=== PATIENT | female | born 1985 | race Caucasian/White ===

== ENCOUNTER 2025-10-02 09:07 | Emergency (ER) | payer BC, SELFPAY ==
--- NOTE | ~2025-10-02 | XR_ITS ---
Examination: XR chest 2V Clinical History: chest pain Comparison: None Technique: PA and Lateral Findings: Cardiomediastinal silhouette normal size and configuration. Lungs clear. No acute bony abnormality. IMPRESSION: 1. No acute cardiopulmonary findings. Reviewed, dictated and finalized at location [facility] [employer]
--- NOTE | 2025-10-02 09:08 | ECG_ITS ---
Test Date: 2025-10-02 09:12:56 Measurements Intervals [place] Rate: 82 P: 70 [place]: 147 QRS: -9 QRSD: 81 T: 19 QT: 348 QTc: 407 Interpretive Statements SINUS RHYTHM NONSPECIFIC T-WAVE ABNORMALITY- INFERIOR LEADS BASELINE ARTIFACT- I, II, III, AVR, AVL, AVF BORDERLINE ECG No previous ECG available for comparison Electronically Signed On 10-02-2025 17:11:38 SPORTS CARTOONIST by Alan Dennis D.O.
[2025-10-02 09:13] VITALS: BP 134/83; PULSE 56; RESP 16; TEMP 36.5; O2SAT 97
[2025-10-02 09:43] LABS: Hematocrit 40.7 % (37.0-47.0); Hemoglobin 13.5 g/dL (12.0-15.0); Immature Granulocyte Percent A 0.3 % (0-0.5); Lymphocytes Absolute Auto 1.48 K/mm3 (0.9-3.2); Mean Corpuscular HGB Conc 33.2 g/dl (32-36); Mean Corpuscular Hemoglobin 30.5 pg (26-34); Mean Corpuscular Volume 91.9 fl (80-100); Nucleated Red Blood Cells Absolute Auto 0.000 K/mm3 (0.0-0.012); Nucleated Red Blood Cells Perc 0.0 % (0.0-0.2); Platelet Count Result 352 k/mm3 (150-375); Red Blood Count 4.43 M/mm3 (4.2-5.4); White Blood Count 4.0 K/mm3 (4.5-10.0)
[2025-10-02 09:46] LABS: Alanine Aminotransferase 16 U/L (6-35); Albumin Level 4.5 g/dL (3.5-5.1); Alkaline Phosphatase 63 U/L (38-126); Anion Gap 6 mmol/L (4-12); Aspartate Amino Transferase 27 U/L (14-36); Bilirubin,Total 1.1 mg/dL (0.2-1.3); Blood Urea Nitrogen 12 mg/dL (7-17); Calcium 9.2 mg/dL (8.4-10.2); Carbon Dioxide 27 mmol/L (22-30); Chloride 105 mmol/L (98-107); Estimated CRCL calculation 84 ml/min; Estimated Glomerular Filt Rate > 60; Glucose 105 mg/dL (65-110); INR 1.0; Lipase 72 U/L (23-300); Potassium 4.2 mmol/L (3.4-5.0); Prothrombin Time 13.0 Seconds (11.1-14.7); Sodium 138 mmol/L (137-145); Total Protein 8.0 g/dL (6.3-8.2)
[2025-10-02 09:47] LABS: Partial Thromboplastin Time 36.2 Seconds (22.3-36.8)
[2025-10-02 09:57] LABS: Troponin I < 0.012 ng/mL (0.000-0.034)
[2025-10-02 12:03] VITALS: BP 134/76; PULSE 77; RESP 20; O2SAT 100
--- NOTE | 2025-10-02 12:30 | ED_ITS ---
HPI - Chest Pain General Chief Complaint: Chest Pain Stated Complaint: chest pain Time Seen by Provider: 10/02/25 12:21 Source: patient Mode of arrival: ambulatory Limitations: no limitations History of Present Illness HPI narrative: This is a 40-year-old female with history of anxiety who presents to the ED for chest pain. Patient states for the past week, she did having a left-sided chest dullness. She has not had any shortness of breath or cough. She states that she has been exposed to her who had flu-like symptoms last week. She denies any symptoms like that at this time. Denies fevers, chills, nausea, vomiting. Patient does have family history of coronary artery disease which is not been diagnosed with anything that she is aware of Related Data Allergies Allergy/AdvReac Type Severity Reaction Status Date / Time Penicillins AdvReac Intermediate Vomiting Verified 10/02/25 09:11 Review of Systems 2 Review of Systems: All systems reviewed & are unremarkable except as noted in HPI and below Exam 2 Narrative: APPEARANCE: No acute distress, nontoxic, resting in bed EYES: EOMI HEENT: Normocephalic, atraumatic, OMM RESPIRATORY: No respiratory distress Clear to auscultation bilaterally with no rhonchi wheezing or rales. CARDIOVASCULAR: Regular rate and rhythm without murmurs rubs or gallops. ABDOMINAL: Soft, nontender, nondistended, no rebound or guarding MUSCULOSKELETAl: Moves all extremities. No clubbing, cyanosis or edema. NEURO: Awake and alert. Following commands, speech normal, no focal deficits SKIN:: Warm, dry. No rashes lesions or abrasions PSYCHIATRIC: Normal affect/mood, Course Vital Signs Vital signs: Vital Signs Temperature 97.7 F 10/02/25 09:13 Pulse Rate 56 L 10/02/25 09:13 Respiratory Rate 16 10/02/25 09:13 Blood Pressure 134/83 10/02/25 09:13 Pulse Oximetry 97 10/02/25 09:13 Oxygen Delivery Room Air 10/02/25 09:13 Temperature 97.7 F 10/02/25 09:13 Pulse Rate 80 10/02/25 12:46 Respiratory Rate 20 10/02/25 12:46 Blood Pressure 142/89 H 10/02/25 12:46 Pulse Oximetry 100 10/02/25 12:46 Oxygen Delivery Room Air 10/02/25 09:13 [facility] MDM Narrative Medical decision making narrative: 4-year-old female Presenting for chest pain. On initial evaluation patient was in no acute distress afebrile, hemodynamic stable. Differentials include but are not limited to: ACS, PE, PNA, bronchitis, costochondritis, pleurisy, viral syndrome, GERD Notable exam findings: Heart and lungs clear I personally reviewed the patient's lab result. Notable lab findings: CBC and CMP without significant abnormalities. Troponin negative. Lipase negative. I personally reviewed the patient's images and interpret as follows: Chest x- ray: Normal cardiac silhouette, no consolidations, no pleural effusions, no pulmonary vascular congestion I personally reviewed the patient's EKGs: Normal sinus rhythm, normal axis, normal intervals, no acute ST or T-wave changes Patient's EKGs and labs are without significant high risk changes. Cardiac risk factors reviewed. Patient is felt likely low risk for ACS and reasonable for further risk stratification testing as an outpatient. Pain was not sudden or maximal in onset without tearing or ripping quality. No other signs of symptoms suggest aortic dissection. A low-risk Wells criteria is noted, PE is felt to be unlikely. No pneumonia seen on evaluation today. Patient is felt to be a reasonable candidate for continued evaluation as an outpatient. Patient was deemed appropriate for discharge at this time. Patient was advised follow-up with their PCP in the next week for re-evaluation. Patient was agreeable to this plan. Given strict return precautions. Differential Diagnosis Differential Diagnosis: ACS, PE, PNA, bronchitis, costochondritis, pleurisy, viral syndrome, GERD Lab Data 10/02/25 09:29 10/02/25 09:29 Labs: Lab Results 10/02/25 10/02/25 Range/Units 09:29 12:18 WBC 4.0 L (4.5-10.0) K/mm3 RBC 4.43 (4.2-5.4) M/mm3 Hgb 13.5 (12.0-15.0) g/dL Hct 40.7 (37.0-47.0) % MCV 91.9 (80-100) fl MCH 30.5 (26-34) pg MCHC 33.2 (32-36) g/dl RDW 12.5 (11.5-14.5) % Plt Count 352 (150-375) k/mm3 MPV 9.1 (7.4-10.4) fl Immature Gran % (Auto) 0.3 (0-0.5) % Neut % (Auto) 49.5 (45.5-73.1) % Lymph % (Auto) 37.3 (18.3-44.2) % Lane % (Auto) 8.1 (2.6-8.5) % Eos % (Auto) 3.3 (0-4.4) % Baso % (Auto) 1.5 H (0.2-1.2) % Lymph # (Auto) 1.48 (0.9-3.2) K/mm3 Lane # (Auto) 0.3 (0.1-0.6) K/mm3 Eos # (Auto) 0.1 (0-0.3) K/mm3 Baso # (Auto) 0.1 (0.0-0.1) K/mm3 Abs Immat Gran (auto) 0.01 (0.00-0.031) K/mm3 Absolute Neuts (auto) 2.0 (1.3-6.7) K/mm3 Absolute Nucleated RBC 0.000 (0.0-0.012) K/mm3 Nucleated RBC % 0.0 (0.0-0.2) % PT 13.0 (11.1-14.7) Seconds INR 1.0 APTT 36.2 (22.3-36.8) Seconds Sodium 138 (137-145) mmol/L Potassium 4.2 (3.4-5.0) mmol/L Chloride 105 (98-107) mmol/L Carbon Dioxide 27 (22-30) mmol/L Anion Gap 6 (4-12) mmol/L BUN 12 (7-17) mg/dL Creatinine 0.81 (0.7-1.0) mg/dL Estim Creat Clear Calc 84 ml/min Estimated GFR > 60 (59 - ) Glucose 105 (65-110) mg/dL Calcium 9.2 (8.4-10.2) mg/dL Total Bilirubin 1.1 (0.2-1.3) mg/dL AST 27 (14-36) U/L ALT 16 (6-35) U/L Alkaline Phosphatase 63 (38-126) U/L Troponin I < 0.012 < 0.012 (0.000-0.034) ng/mL Total Protein 8.0 (6.3-8.2) g/dL Albumin 4.5 (3.5-5.1) g/dL Lipase 72 (23-300) U/L Imaging Data Radiologist's impression: ITS Impressions Chest X-Ray 10/02/25 09:48 IMPRESSION: 1. No acute cardiopulmonary findings. Discharge Plan Discharge Clinical Impression: Chest pain Qualifiers: Chest pain type: unspecified Qualified Code(s): R07.9 - Chest pain, unspecified Patient Disposition: Home Condition: Stable Instructions: Antibiotic Form, Chest Pain (ED) Additional Instructions: Labs, EKG, chest x-ray were all reassuring and not indicative of heart damage at this time. It is unclear with sore severe pain is at this time but it may be due to a costochondritis or pleurisy. You may take Tylenol and ibuprofen for the pain. Follow-up with your PCP in the next week for re-evaluation. Return to the ED for any new worsening symptoms. Patient Language: Chilean Follow-up/Referrals: PHYSICIAN,FINANCIAL PROJECT MANAGER [Non-Staff, Internal Medicine] Miguel Trevino MD [Physician, Family Practice]
--- OUTSIDE RECORDS SUMMARY | 2025-10-02 12:44 | XMS_ITS | Encounter Summary ---
Author Organization [facility] Address [facility] [place] [address] Care Team Providers Care Strawhat Sizer Name Role Phone Claire Cadena OIL PROCESSING TECHNICIAN Primary Care Provider [phone] Encounter Details Date Type Department Care Team (Late st Contact Info) Description 09/08/2023 [facility] Message Enc [facility] Medical Group Family Medicine [facility] [address] [place] [id number] CV Ingenuitymarian, [facility] Provider Referral Social History Tobacco Use Types Packs/Day Years Used Date Smoking Tobacco: Former Cigarettes 0.3 4 0 12/16/2012 - 12/16/2016 Passive Smoke Exposure: Never Smokeless Tobacco: Never Alcohol Use Standard Drinks/Week Comments Not Currently 0 (1 standard drink = 0.6 oz pur e alcohol) PHQ-2 Answer Date Recorded Patient Health Questionnaire-2 Score 2 06/26/2023 Comments No Sex and Gender Information Value Date Recorded Sex Assigned at Not on file Legal Sex Female 1:20 PM CDT Gender Identity Female 12/30/2022 10:25 AM CDT Sexual Orientation Straight 12/30/2022 10 :25 AM CDT documented as of this encounter Plan of Treatment Not on file documented as of this encounter Visit Diagnoses Not on filedocumented in this encounter Additional Health Concerns Assessment Noted Time PHQ-9 Depression Total Score: 7 06/26/20 23 11:03 AM CDT documented as of this encounter Care Teams Strawhat Sizer Relationship Specialty Start Date End Date Claire Cadena, OIL PROCESSING TECHNICIAN [address] [place] [address] PCP - General NURSE PRACTITIONER 12/30/22 08/16/25 documented as of this encounter
--- OUTSIDE RECORDS SUMMARY | 2025-10-02 12:44 | XMS_ITS | Encounter Summary ---
Author Organization [facility] Address [address] [place] [address] Care Team Providers Care Outboard Motor Tester Name Role Phone Catia Veras MD Primary Care [facility] ider Reason for Visit * Reason Onset Date Comments Courtesy Call 03/07/2020 Encounter Details Date Type Department Care Team (Late st Contact Info) Description 03/07/2020 Telephone [facility] [email or web address] [facility] [place] [address] Duarte Ortiz (), RT Courtesy Call Social History Tobacco Use Types Packs/Day Years Used Date Smoking Tobacco: Former Cigarettes 0.3 5 Smokeless Tobacco: Never Alcohol Use Standard Drinks/Week Comments Yes 0 (1 standard drink = 0.6 oz pur e alcohol) socially Comments No Sex and Gender Information Value Date Recorded Sex Assigned at Not on file Legal Sex Female 6:07 AM POLYETHYLENE COMBINER Gender Identity Not on file Sexual Orientation Not on file 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 No / Unsure 03/04/2020 10:44 AM CDT documented as of this encounter Plan of Treatment Not on file documented as of this encounter Visit Diagnoses Not on filedocumented in this encounter Care Teams Outboard Motor Tester Relationship Specialty Start Date End Date Catia Veras MD PCP - General Family Practice 06/25/19 documented as of this encounter
--- OUTSIDE RECORDS SUMMARY | 2025-10-02 12:44 | XMS_ITS | Clinical Summary ---
Author Organization [facility] Address [facility] [place] [address] Care Team Providers Care Stock Grader Name Role Phone Unavailable Primary Care Provider Unavailabl e Allergies Active Allergy Reactions Criticality Noted Date Comments Penicillins Nausea and Vomiting Low 08/12/2014 Medications Multiple Vitamin (MULTIVITAMIN ADULT OR) Take by mouth daily. Active propranolol (INDERAL) 10 MG tabletIndication s:Generalized anxiety disorder TAKE 1 TABLET BY MOUTH DAILY NEEDED FOR ANXIETY. 30 tablet 05/12/2024 Active Active Problems Problem Noted Date Diagnosed Date Overweight (BMI 25.0-29.9) 04/20/2024 Assessment & Plan (04/20/2024 1:15 PM CDT): Diet and lifestyle discussed. Pure hypercholesterolemia 04/20/2024 Assessment & Plan (04/20/2024 1:16 PM CDT): Will recheck lipid panel Generalized anxiety disorder 12/23/2016 Overview (04/20/2024): Currently taking fluvoxamine. Other medications patient has tried for her generalized anxiety would include Lexapro, Prozac, Zoloft, Effexor, Duloxetine, and Celexa (just for a month). Has not been on a beta-marcell, hydroxyzine or benzo before. Pt does not tolerate benadryl, Zyzal, or Zyrtec. Makes her too tired. Tried supplements such as Ashwagandha and L-theanine in the past as well. Denies any depression. Denies SI/HI. Has been to [facility] in the past. Does yoga to help with her anxiety. Assessment & Plan (04/20/2024 1:08 PM CDT): Went over with pt how to wean down off of Fluvoxamine. Discussed options for as needed use for anxiety. We agreed on propanolol. Discussed how to take and side effects. Seasonal allergic rhinitis due to pollen 017 Resolved Problems Problem Noted Date Diagnosed Date Resolved Date Anxiousness 12/31/2022 04/20/2024 Leg pain 12/11/2020 04/20/2024 Overweight 11/01/2019 04/20/2024 Primary insomnia 01/20/2017 04/20/2024 Pain of right scapula 12/23/20162023 Immunizations Immunization Administration Dates Next Due Fluzone 6 Months+ Quad (0.5 mL Prefilled Syringe) 09/03/2023 HPV4 (Gardasil) 08/03/2009,04/07/2009,02/09/2009 Influenza (Generic) 12/01/2018 Influenza Adult (Generic) 10/09/2022 MODERNA COVID-19 BIVALENT (1 2+), MRNA, LNP-S, PF 08/08/2022 PFIZER COVID-19 (ORIGINAL FO RMULATION, PURPLE CAP) mRNA, LNP-S, PF, 30 MCG/0.3 ML DOSE 01/21/2021,12/31/2020 Tdap (Adacel) 12/31/2022 Family History Medical History Relation Comments Heart Disease Father Hypertension Father Mental Health Father Mental Health Mother Mother is deceas ed Relation Status Comments Father Alive Mother Social History Tobacco Use Types Packs/Day Years Used Date Smoking Tobacco: Former Cigarettes 0.3 4 0 12/16/2012 - 12/16/2016 Passive Smoke Exposure: Never Smokeless Tobacco: Never Tobacco Cessation:Counseling Given: No Alcohol Use Standard Drinks/Week Comments Not Currently 0 (1 standard drink = 0.6 oz pur e alcohol) PHQ-2 Answer Date Recorded Patient Health Questionnaire-2 Score 0 05/06/2024 Comments No Sex and Gender Information Value Date Recorded Sex Assigned at Not on file Legal Sex Female 1:20 PM CDT Gender Identity Female 12/30/2022 10:25 AM CDT Sexual Orientation Straight 12/30/2022 10 :25 AM CDT Last Filed Vital Signs Vital Sign Reading Time Taken Comments Blood Pressure 98/70 05/06/2024 1:05 PM CDT Pulse 79 05/06/2024 1:05 PM CDT Temperature 36.7 C (98 F) 05/06/2024 1:05 PM CDT Respiratory Rate 20 05/06/2024 1:05 PM CDT Oxygen Saturation 99% 05/06/2024 1:05 PM CDT Inhaled Oxygen Concentration - - Weight 80.3 kg (177 lb) 05/06/2024 1:05 PM CDT Height 165.1 cm (5' 5) 05/06/2024 1:05 PM CDT Body Mass Index 29.45 05/06/2024 1:05 PM CDT Plan of Treatment Health Maintenance Due Date Last Done Comments Hepatitis B Vaccines (1 of 3 - 19+ 3-dose series) 2004 PHQ-2 (Physician [place]) 10/13/2024 05/06/2024 Annual Physical 05/06/2025 05/06/2024, 07/0 06/2024, 12/31/2022 COVID-19 Vaccine ( season) 2025 09/27/2023, 08/08/2022, 09/07/2021, Additional history exists Mammogram Screening 2025 Influenza Adult (#1) 2025 09/03/2023, 10/09/2022, 12/01/2018 Cervical Cancer Screening Pap Smear (Age 30 to 64) Every 3 Years 05/06/2027 05/06/2024, 12/06/2019 Cervical Cancer Screening Pap with HPV Testing (Age 30 to 64) Every 5 Years 05/06/2029 05/06/2024 Cervical Cancer Screening with HPV 05/06/2029 DTaP, Tdap and Td Vaccines (2 - Td or Tdap) 12/31/2032 12/31/2022 HPV Vaccines Completed 08/03/2009, 03/14, 02/09/2009 Hepatitis C Completed 01/06/2023 Hepatitis A Vaccines Aged Out No long er eligible based on patient's age to complete this topic Meningococcal B Vaccine Aged Out No l onger eligible based on patient's age to complete this topic Meningococcal Vaccine Aged Out No murali sharlene eligible based on patient's age to complete this topic Pneumococcal Vaccine: Pediatrics (0 to 5 Years) and At-Risk Patients (6 to 49 Years) Aged Out No longer eligible based on patient's age to complete this topic RSV Immunizations Under 20 Months Aged Out No longer eligible based on patient's age to complete this topic Procedures Procedure Name Priority Date/Time Associated Diagnosis Comments HUMAN PAPILLOMAVIRUS, HIGH-RISK TYPES Routine 05/06/2024 12:00 PM CDT CYTOPATH CERV/VAG THIN LAYER Routine 05/06/2024 12:00 AM CDT HEPATITIS C ANTIBODY Routine 01/06/2023 9:50 AM CDT Need for hepatitis C screening test from Last 3 Months or Most Recently Relevant to Health Maintenance Results * HUMAN PAPILLOMAVIRUS, HIGH-RISK TYPES (05/06/2024 12:00 PM CDT) SPEC DESCRIPTION CERVIX 05/10/20 7:25 AM CDT [facility] HPV DNA HIGH RISK NEGATIVE NEGATIVE 05/11/2024 1:39 AM CDT [facility] Comment:SEE CYTOLOGY REPORT 05/06/2024 12:0 0 PM CDT us Claire Cadena NP PATHOLOGY/CYTOLOGY ORDERA BLES Final Result [facility] [address] [place] [address], * Cytopath Cerv/Vag Thin Layer (05/06/2024 12:00 AM CDT) THIN PREP PAP [facility] [address] [place] [address] Department of Pathology Pathology Report CERVICAL/VAGINAL PAP SMEAR REPORT Name: DEYSI FLOOD Age: 9 1985 (Age: 38) Location: [facility] Sex: F Collected Date: 05/06/2024 [facility] #: [id number] Date Received: 05/07/2024 Date Reported: 05/11/2024 Provider: CLAIRE CADENA INSURANCE CLAIMS SUPERVISOR INTERPRETATION ABNORMAL RESULT CERVICAL/ENDOCERVI LIZ: SATISFACTORY FOR EVALUATION. ENDOCERVICAL/TRANS FORMATION ZONE COMPONENT ABSENT. ATYPICAL SQUAMOUS CELLS OF UNDETERMINED SIGNIFICANCE. NEGATIVE FOR HIGH RISK HPV. The FDA approved Aptima HPV assay is an in vitro nucleic acid amplification test for the qualitative detection of E6/E7 viral messenger RNA (mRNA) from 14 high-risk types of human papillomavirus (HPV) in cervical specimens. The high-risk HPV types detected by the assay include: 16,18,31,33,35,39, 45,51,52,56,58,59, 66, and 68. Initial cytologic [place] [address]. This case was interpreted and signed out at [facility], [address] [place] [address]. Electronically Signed Out JAZ Tse MD (ASCP) CLINICAL HISTORY Z01.419 ENCOUNTER FOR GYNECOLOGICAL EXAMINATION Z11.51 SCREENING FOR HPV (HUMAN PAPILLOMAVIRUS) SCREENING PAP ThinPrep Pap Test with HR HPV testing requested. Date of Last Menstrual Period: 04/21/2024 Menstrual Status: Regular SPECIMEN SUBMITTED CERVICAL/ENDOCERVI LIZ Specimen Received:1 Thin Prep Vial, Image Assisted Pap (SMD) Please note: The Pap smear is not a diagnostic test. It is a screening test. Negative results on combined screening (Pap test and HPV-DNA) have a high negative predictive value (99.1-100 percent) for cervical cancer. The pap test is not effective in detecting cervical adenocarcinoma. [facility] () [facility] 05/06/2024 05/07/2024 1:0 9 PM CDT Comment:CERVICAL/ENDOCERVICA L Claire Cadena INSURANCE CLAIMS SUPERVISOR PATHOLOGY/CYTOLOGY ORDERA BLES Final Result [facility] [address] [place] [address], [place] [phone] * HEPATITIS C ANTIBODY (01/06/2023 9:50 AM CDT) HEPATITIS C AB NON-REACTI VE NON-REACT ELIZABETH 01/06/2023 6:14 PM CDT [facility] Comment: ANTIBODIES TO HCV NOT DETECTED. DOES NOT EXCLUDE THE POSSIBILITY OF EXPOSURE TO HCV. 01/06/2023 9:50 AM CDT Claire Cadena INSURANCE CLAIMS SUPERVISOR LABORATORY Final Res ult Performing Organization Address City/[facility]/ZIP Co de Phone Number [facility] [address] [place] [address], [place] [phone] from Last 3 Months or Most Recently Relevant to Health Maintenance Insurance
--- OUTSIDE RECORDS SUMMARY | 2025-10-02 12:44 | XMS_ITS | Encounter Summary ---
Author Organization [facility] Address [facility] [place] [address] Care Team Providers Care Mortgage Collector Name Role Phone Claire Cadena NP Primary Care Provider [phone] Encounter Details Date Type Department Care Team (Late st Contact Info) Description 12/28/2022 [facility] Message Enc [facility] Medical Group Family Medicine [facility] [address] [id number] Claire Cadena NP [address] [place] [phone] Medical Records Social History Tobacco Use Types Packs/Day Years Used Date Smoking Tobacco: Never Assessed PHQ-2 Answer Date Recorded Patient Health Questionnaire-2 Score 0 12/31/2022 Comments Unknown Sex and Gender Information Value Date Recorded Sex Assigned at Not on file Legal Sex Female 1:20 PM CDT Gender Identity Female 12/30/2022 10:25 AM CDT Sexual Orientation Straight 12/30/2022 10 :25 AM CDT COVID-19 Exposure Response Date Recorded In the last 10 days, have yo u been in contact with someone who was confirmed or suspected to have Coronavirus/COVID-19? No / Unsure 12/31/2022 1:57 PM CDT documented as of this encounter Progress Notes * Mynor Wall MA - 12/30/2022 8:39 AM CDT Records printed and will be scanned into pt. chart documented in this encounter Plan of Treatment Not on file documented as of this encounter Visit Diagnoses Not on filedocumented in this encounter Care Teams Mortgage Collector Relationship Specialty Start Date End Date Claire Cadena NP [address] [place] [address] PCP - General NURSE PRACTITIONER 12/30/22 08/16/25 documented as of this encounter
--- OUTSIDE RECORDS SUMMARY | 2025-10-02 12:44 | XMS_ITS | Clinical Summary ---
Author Organization [facility] [address] Address [address] [place] [id number] Care Team Providers Care Assistant Food Service Director Name Role Phone Nela Winslow NP Primary Care Provider [phone] Allergies Active Allergy Reactions Criticality Noted Date Comments Penicillins Nausea & Vomiting,Na usea And Vomiting,Stomach upset Low 08/12/2014 Medications multivit-min/demetrius jeremias fumarate (MULTI VITAMIN ORAL) Active loratadine (CLARITIN) 10 mg tabletIndication s:Allergic Rhinitis Take 1 tablet (10 mg total) by mouth daily Active propranoloL (INDERAL) 20 mg tabletIndication s:Generalized anxiety disorder Take 1 tablet (20 mg total) by mouth 3 (three) times a day as needed (for anxiety) 90 tablet 3 02/15/2025 Active citalopram (CeleXA) 10 mg tabletIndication s:Generalized anxiety disorder Take 1 tablet (10 mg total) by mouth daily 90 tablet 3 07/15/2025 Active Active Problems Problem Noted Date Diagnosed Date Encounter for well woman exa m with routine gynecological exam 07/15/2025 Assessment & Plan (07/15/2025 3:11 PM CDT): Pap smear with HPV cotesting completed. Order for mammogram. We will notify the patient of all results. Follow up in one year or sooner if needed. Patient verbalizes understanding regarding plan of care and all questions answered. Positive DARRYL (antinuclear antibody) 06/29/2024 Assessment & Plan (07/15/2025 3:11 PM CDT): Orders: DARRYL ab ql w/rflx to DARRYL qn; Future Assessment & Plan (06/29/2024 9:04 AM CDT): Positive speckled pattern DARRYL. Repeat DARRYL, anti double-stranded DNA with Sjogren's A and B. we will follow up with patient. Mixed hyperlipidemia 05/26/2024 Assessment & Plan (05/26/2024 6:09 PM CDT): Fasting lipid panel reviewed. Patient does not meet indications for medical treatment. We will continue to monitor her levels yearly.. Nonpharmacological interventions such as low carb diet, high in vegetables and fruit discussed. Educated on importance of physical activity. Patient verbalizes understanding regarding plan of care and all questions answered Attention deficit hyperactiv ity disorder (ADHD), predominantly inattentive type 05/26/2024 Assessment & Plan (03/15/2025 4:44 PM CDT): Doing fine without medication. Assessment & Plan (06/29/2024 8:46 AM CDT): Discussed with patient various medication options. We will try Vyvanse 20 mg daily. Advised she may continue using the hydroxyzine if needed. We discussed the goal would eventually be to be on medication that she does not need to take an anti anxiety medication with. Patient will message me on [facility] and let me know how she is doing on the medication. Assessment & Plan (05/26/2024 6:09 PM CDT): Will try patient on a low dose of Adderall 10 mg XR. Advised on side effects of medication. She will follow up with me in 4 weeks. She is advised that she can message me sooner in [employer] if she has any adverse reactions to the medication. I do believe after extensive history taking, assessing anxiety symptoms and ADHD self assessment that she does have ADHD and the anxiety is exacerbated from not treating her ADHD symptoms for so long. Generalized anxiety disorder 12/23/2016 Overview (02/15/2025): Currently taking fluvoxamine. Other medications patient has tried for her generalized anxiety would include Lexapro, Wellbutrin XL & IR, Zoloft, Effexor, Duloxetine, and Celexa (just for a month). Has not been on a beta-marcell, hydroxyzine or benzo before. Pt does not tolerate benadryl, Zyzal, or Zyrtec. Makes her too tired. Tried supplements such as Ashwagandha and L-theanine in the past as well. Denies any depression. Denies SI/HI. [facility] Does yoga to help with her anxiety. Assessment & Plan (07/15/2025 3:11 PM CDT): Orders: citalopram (CeleXA) 10 mg tablet; Take 1 tablet (10 mg total) by mouth daily Assessment & Plan (03/15/2025 4:46 PM CDT): Assessment & Plan (03/15/2025 4:46 PM CDT): Assessment & Plan (02/15/2025 4:14 PM CDT): Orders: citalopram (CeleXA) 10 mg tablet; Take 1 tablet (10 mg total) by mouth daily propranoloL (INDERAL) 20 mg tablet; Take 1 tablet (20 mg total) by mouth 3 (three) times a day as needed (for anxiety) Assessment & Plan (06/29/2024 9:05 AM CDT): Patient with concurrent anxiety and ADD. We will continue hydroxyzine 10 mg every 8 hours p.r.n. for anxiety as needed. We are switching patient to Vyvanse 20 mg from Adderall XR. Assessment & Plan (05/26/2024 6:08 PM CDT): Patient may have concurrent anxiety and HD HD. Patient is in agreement to try hydroxyzine 10 mg every 8 hours p.r.n. for anxiety symptoms. We will also treat ADHD. Seasonal allergic rhinitis due to pollen 017 Assessment & Plan (05/26/2024 6:09 PM CDT): Continue Claritin daily Resolved Problems Problem Noted Date Diagnosed Date Resolved Date Rash/skin eruption 06/29/2024 5 Assessment & Plan (06/29/2024 9:05 AM CDT): Triamcinolone 0.1 apply topically b.i.d. p.r.n.. BMI 29.0-29.9,adult 05/26/2024 03/15/20 25 Assessment & Plan (05/26/2024 3:19 PM CDT): Follow a heart healthy diet with regular physical activity. Encounters Date Type Department Care Team Description 07/18/2025 Results Follow-Up [facility] at [address] [phone] Nela Winslow NP CBC with auto differential, Comprehensive metabolic panel, Lipid panel, Additional followed-up results: 6 07/15/2025 3:38 PM CDT - 07/15/2025 11:59 PM [place] [address] Screening for cervical cancer Discharge Disposition: Discharge to home or self care 07/15/2025 3:10 [place] [address] Screening for iron deficiency anemia; Encounter for screening examination for impaired glucose regulation and diabetes mellitus; Screening, lipid; Fatigue, unspecified type; Screening for thyroid disorder; Positive DARRYL (antinuclear antibody); Need for hepatitis C screening test 07/15/2025 2:30 PM CDT Office Visit [facility] at [address] [phone] Nela Winslow NP BMI 28.0-28.9,adult (Primary Dx); Encounter for immunization; Screening for cervical cancer; Screening for iron deficiency anemia; Screening, lipid; Screening for thyroid disorder; Encounter for screening examination for impaired glucose regulation and diabetes mellitus; Fatigue, unspecified type; Positive DARRYL (antinuclear antibody); Encounter for well woman exam with routine gynecological exam; Need for hepatitis C screening test; Generalized anxiety disorder 07/08/2025 11:01 AM CDT - 07/08/2025 11:59 PM [place] [address] Screening mammogram, encounter for Discharge Disposition: Discharge to home or self care from Last 3 Months Immunizations Immunization Administration Dates Next Due HPV, Quadrivalent 08/03/2009,04/07/2009,02/10/20 09 Influenza, Quadrivalent, Spl it, Preservative Free, Intramuscular 09/03/2023,10/09/2022 Influenza, Trivalent, Preser vative Free, Intramuscular 07/15/2025 Influenza, Unspecified 12/01/2018 Pfizer SARS-CoV-2 Monovalent Vaccination (12+ Yrs) PURPLE 01/21/2021,12/31/2020 Tdap 12/31/2022 Medical History Medical History Date Comments Anxiety Hyperlipidemia History of chicken pox Kidney stone 2006 Family History Medical History Relation Name Comments Diabetes Father Jer Galvez Heart attack Father Jer Galvez Stroke Father Jer Galvez Relation Name Status Comments Father Jer Galvez Alive Mother Social History Tobacco Use Types Packs/Day Years Used Date Smoking Tobacco: Never Smokeless Tobacco: Never Tobacco Cessation:Counseling Given: Not Answered Alcohol Use Standard Drinks/Week Comments Never 0 (1 standard drink = 0.6 oz pur e alcohol) PHQ-2 Answer Date Recorded PHQ-2 Total Score (If total score is 3 or more points, staff should administer the PHQ-9) 0 07/15/2025 AUDIT-C Answer Date Recorded Q1: How often do you have a drink containing alcohol? Never 07/15/2025 Q2: How many drinks containi ng alcohol do you have on a typical day when you are drinking? Patient does not drink Q3: How often do you have si x or more drinks on one occasion? Never 07/15/2025 Comments No Sex and Gender Information Value Date Recorded Sex Assigned at Not on file Legal Sex Female 9:43 AM CDT Gender Identity Female 05/19/2024 8:40 AM CDT Sexual Orientation Straight 05/19/2024 8: 40 AM CDT Obstetrics History Para Term AB IAB SAB Ectopic Multiple Livin g Live Births 0 0 0 0 0 0 0 0 0 0 0 Last Filed Vital Signs Vital Sign Reading Time Taken Comments Blood Pressure 110/80 07/15/2025 2:24 PM CDT Pulse 84 07/15/2025 2:24 PM CDT Temperature 36.3 C (97.4 F) 07/15/2025 2:24 PM CDT Respiratory Rate 16 07/15/2025 2:24 PM CDT Oxygen Saturation 99% 07/15/2025 2:24 PM CDT Inhaled Oxygen Concentration - - Weight 78 kg (172 lb) 07/15/2025 2:24 PM CDT Height 165.1 cm (5' 5) 07/15/2025 2:24 PM CDT Body Mass Index 28.62 07/15/2025 2:24 PM CDT Plan of Treatment Health Maintenance Due Date Last Done Comments Breast Cancer Screening-Mammogram 07/08/2026 07/08/2025 Covid-19 Vaccine ( season) 2026 09/27/2023, 08/08/2022, 09/07/2021, Additional history exists Postponed from 06/13/2025 (Patient declined, but will receive in the future) Depression Screening 07/15/2026 07/15/2025, 02/15/2025, 05/26/2024 Regular Well Visit/Exam 18-64 07/15/2026 07/15/2025, 07/15/2025, 06/29/2024 Cervical Cancer Screening 07/15/20302024, 07/15/2025, 05/06/2024 DTaP/Tdap/Td Vaccine (2 - Td or Tdap) 12/31/2032 12/31/2022 HPV Vaccines Completed 08/03/2009, 03/14, 02/09/2009 Hepatitis C Screening Completed 07/15/2025 Influenza Vaccine Completed 07/15/2025, , 10/09/2022, Additional history exists Hepatitis B Screening Discontinued Pneumococcal vaccine <65 Aged Out No longer eligible based on patient's age to complete this topic Procedures Procedure Name Priority Date/Time Associated Diagnosis Comments HIGH RISK HPV DNA DETECTION WITH GENOTYPING Routine 07/15/2025 6:12 PM CDT Screening for cervical cancer EGFR Routine 07/15/2025 3:15 PM CDT Encounter for screening examination for impaired glucose regulation and diabetes mellitus DIFFERENTIAL AUTO Routine 07/15/2025 3:1 5 PM CDT Screening for iron deficiency anemia DARRYL QUALITATIVE WITH REFLEX TO DARRYL QUANTITATIVE Routine 07/15/2025 3:15 PM CDT Positive DARRYL (antinuclear antibody) THYROID FUNCTION CASCADE Routine 07/15/2025 3:15 PM CDT Screening for thyroid disorder VITAMIN D 25 HYDROXY Routine 07/15/2025 3:15 PM CDT Fatigue, unspecified type LIPID PANEL Routine 07/15/2025 3:15 PM CDT Screening, lipid COMPREHENSIVE METABOLIC PANEL Routine 07/15/2025 3:15 PM CDT Encounter for screening examination for impaired glucose regulation and diabetes mellitus CBC WITH AUTO DIFFERENTIAL Routine 07/15/2025 3:15 PM CDT Screening for iron deficiency anemia HEPATITIS C ANTIBODY Routine 07/15/2025 3:15 PM CDT Need for hepatitis C screening test PAP AND HIGH RISK HPV, REFLEX TO GENOTYPING Routine 07/15/2025 2:43 PM CDT Screening for cervical cancer SCREENING MAMMOGRAM BILATERAL W CLAUS Schedule Routine, Read Routine (OP Routine) 07/08/2025 11:22 AM CDT Screening mammogram, encounter for from Last 3 Months Results * High Risk HPV DNA Detection with Genotyping (Molecular component) (07/15/2025 6:12 PM CDT) HPV HR 16 Not Detected Not Detected [facility] Comment:Testing performed by : [facility], [address] [place] [address] HPV HR 18 Not Detected Not Detected [facility] Comment:Testing performed by : [facility], [address] [place]., [address] HPV HR Non 16/18 Not Detected Not Detected [facility] Comment: Interpretive Data Nucleic acid amplification for detection of high-risk Human Papilloma virus (HPV) is performed by the Alfredo Constantine 6800 HPV test. This assay specifically detects HPV-16 and HPV-18 genotypes. The following HPV genotypes are detected as high-risk HPV: HPV-31, 33, 35, ,39, 45, 51, 52, 56, 58, 59, 66, and 68. This assay has been approved by the [place] Food and Drug Administration for detection of HPV in cervical specimens collected by a physician using an endocervical brush/spatula or cervical broom and placed in the ThinPrep Pap Test PreservCyt collection containers. The performance characteristics of this test have been verified by the [facility] Molecular Infectious Disease laboratory. Correlate with separately reported cytology results, as applicable. Interpretive data last revised 23 Testing performed by: [facility], [address] [place]., [address] Endocervical 07/15/2025 6:12 PM CDT 07/15/2025 8:00 PM CDT Narrative [facility] - 07/18/2025 7:12 PM CDT Clinical history and diagnosis->cervical cancer screening Testing type->Screening Last menstrual period (date if known)->18 Menstrual status->Regular Previous positive HPV history?->Yes Previous atypical cytology->None Previous atypical cytology->ASCUS us Nela Winslow NP LAB BODY FLUIDS AND STOOLS ORDERABLES Final Result [facility] [address] [facility] Department [place] [address] [facility] * DARRYL ab ql w/rflx to DARRYL qn (07/15/2025 3:15 PM CDT) DARRYL Negative Comment: Interpretive Data Normal range for DARRYL Qualitative Antibody = Negative. 1. DARRYL is performed using indirect immunofluorescence against HEp-2 cells 2. DARRYL titers are performed on all positive qualitative results. 3. A significantly positive DARRYL result is defined as a positive nuclear fluorescence at a titer of 1:80 or greater. 4. 15% of normal people above age 65 have significantly positive DARRYL results. 5% or less of normal people age 65 or under have significantly positive DARRYL results. Current interpretive data was last revised on 2020. Testing performed by: [facility], [address] [place]., [address] Blood 07/15/2025 3:15 PM CDT 07/15/2025 9:12 PM CDT Nela Winslow NP LAB BLOOD ORDERABLES Final Result [facility] [address] [facility] Department [place] [address] * eGFR (07/15/2025 3:15 PM CDT) eGFR 90 >=60 mL/min/1. 73 m2 Comment: Interpretive Data Reference Interval Normal >/= 90 mL/min/1.73m2 Mildly decreased* 60 - 89 mL/min/1.73m2 Mildly to moderately decreased 45 - 59 mL/min/1.73m2 Moderately to severely decreased 30 - 44 mL/min/1.73m2 Severely decreased 15 - 29 mL/min/1.73m2 Kidney Failure < 15 mL/min/1.73m2 *Relative to young adult level Estimated glomerular filtration rate is determined by the 2020 CKD-EPI equation recommended by the National Kidney Foundation (A Unifying Approach to GFR Estimation: Recommendations of the NKF-ASK Task Force on Reassessing the Inclusion of Race in Diagnosing Kidney Disease, JASN 2020). The CKD-EPI equation should not be used for patients with unstable renal function and has not been validated in children and those over 70. Current interpretive data was last reviewed 2021. Blood 07/15/2025 3:15 PM CDT 07/15/2025 6:12 PM CDT us Nela Winslow DEPUTY SHERIFF BUILDING GUARD LAB BLOOD ORDERABLES Final Result [facility] [address] [facility] Department [place] [address] * Differential, auto (07/15/2025 3:15 PM CDT) Neutrophil abs 4.22 1.50 - 6.50 K/cumm Imm gran abs 0.02 0.00 - 0.10 K/cumm [facility] Lymphocyte abs 2.10 0.80 - 3.30 K/cumm [facility] Monocyte abs 0.76 0.20 - 0.80 K/cumm [facility] Eosinophil abs 0.20 0.00 - 0.50 K/cumm [facility] Basophil abs 0.08 0.00 - 0.10 K/cumm [facility] Neutrophil pct 57.1 % [facility] Comment: Interpretive Data Percent cell count reference ranges are not reported, since discordance with absolute values may lead to misinterpretation of CBC data. Current Interpretive Data was last revised on 2018. Imm gran pct 0.3 % [facility] Comment: Interpretive Data Percent cell count reference ranges are not reported, since discordance with absolute values may lead to misinterpretation of CBC data. Current Interpretive Data was last revised on 2018. Lymphocyte pct 28.5 % [facility] Comment: Interpretive Data Percent cell count reference ranges are not reported, since discordance with absolute values may lead to misinterpretation of CBC data. Current Interpretive Data was last revised on 2018. Monocyte pct 10.3 % [facility] Comment: Interpretive Data Percent cell count reference ranges are not reported, since discordance with absolute values may lead to misinterpretation of CBC data. Current Interpretive Data was last revised on 2018. Eosinophil pct 2.7 % [facility] Comment: Interpretive Data Percent cell count reference ranges are not reported, since discordance with absolute values may lead to misinterpretation of CBC data. Current Interpretive Data was last revised on 2018. Basophil pct 1.1 % [facility] Comment: Interpretive Data Percent cell count reference ranges are not reported, since discordance with absolute values may lead to misinterpretation of CBC data. Current Interpretive Data was last revised on 2018. Blood 07/15/2025 3:15 PM CDT 07/15/2025 6:12 PM CDT Nela Winlsow DEPUTY [employer]ER[employer] BUILDING [employer]ARD LAB BLOOD ORDERABLES Final Result Performing Organization Address City/[facility] Co de Phone Number [address] [place] [employer] [place] [address] * Thyroid Function [place] (07/15/2025 3:15 PM CDT) Pathologist [facility] TSH 1.05 0.30 - 4.20 mcIUnit/mL Blood 07/15/2025 3:15 PM CDT 07/15/2025 6:12 PM CDT Nela Winslow DEPUTY [employer]ER[employer] BUILD[employer] GUARD LAB BLOOD ORDERABLES Final Result Performing Organization Address [facility] de Phone Number [address] [address] * CBC with auto differential (07/15/2025 3:15 PM CDT) Pathologist [facility] WBC 7.38 3.80 - 9.90 K/cumm Hgb 13.0 11.9 - 15.5 g/dL [facility] Hct 39.3 35.6 - 45.5 % [facility] Plt 331 150 - 400 K/cumm [facility] MPV 9.8 9.1 - 12.3 fL [facility] RBC 4.24 3.90 - 5.20 M/cumm [facility] MCV 92.7 81.3 - 96.4 fL [facility] MCH 30.7 27.1 - 33.3 pg [facility] MCHC 33.1 32.3 - 35.7 g/dL [facility] RDW CV 12.8 11.1 - 14.9 % [facility] RDW SD 43.5 35.7 - 48.1 fL [facility] NRBC abs 0.00 0.00 - 0.01 K/cumm [facility] Blood 07/15/2025 3:15 PM CDT 07/15/2025 6:12 PM CDT Nela Winslow DEPUTY [employer]ER[employer] BUILD[employer]ARD LAB BLOOD ORDERABLES Final Result Performing Organization Address City/[facility]/ZIP Co de Phone Number [address] [address] * Hepatitis C antibody Blood (07/15/2025 3:15 PM CDT) Pathologist [facility] Hep C Ab Nonreactive Nonreactive Comment: Antibodies to HCV not detected. Does NOT exclude the possibility of recent exposure to HCV. Current interpretive data was last revised on 22 Interpretive Data Nonreactive: Antibodies to HCV not detected. Does NOT exclude the possibility of recent exposure to HCV. Equivocal: Equivocal for HCV antibodies. Supplemental molecular testing will be automatically performed to determine infection status in accordance with current CDC screening recommendations. Reactive: Positive for HCV antibodies. This may represent current or past HCV infection. Supplemental molecular testing will be automatically performed to determine current infection status in accordance with current CDC screening recommendations. Interpretive data was last revised on 2019. Blood 07/15/2025 3:15 PM CDT 07/15/2025 6:12 PM CDT Nela Winslow NP LAB MICROBIOLOGY - GENERAL ORDERABLES Final Result Performing Organization Address [facility] Co de Phone Number [address] [address] * Vitamin D 25 hydroxy (07/15/2025 3:15 PM CDT) Pathologist [facility] Vitamin D 25-OH 39.0 30.0 - 80.0 ng/mL Blood 07/15/2025 3:15 PM CDT 07/15/2025 6:12 PM CDT Nela Winslow DEPUTY [employer]ILD[employer] LAB BLOOD ORDERABLES Final Result Performing Organization Address City/[facility] Co de Phone Number [address] Department [place] [address] * Lipid panel (07/15/2025 3:15 PM CDT) Cholesterol 179 30 - 199 mg/dL Comment: Interpretive Data Ages < or = 19 years Acceptable: <170 mg/dL Borderline high: 170-199 mg/dL High: >or= 200 mg/dL Ages > or = 20 years Desirable: <200 mg/dL Borderline high: 200-239 mg/dL High: >or= 240 mg/dL Literature References: 1. Expert Panel on Integrated Guidelines for Cardiovascular Health and Risk Reduction in Children and Adolescents. Pediatrics 2011;128:S213 2. NCEP Expert Panel. Circulation 2004;110:227 Current Interpretive Data was last revised on 2018. Triglycerides 102 <=149 mg/dL [facility] Comment: Interpretive Data Ages < or = 9 years Acceptable: <75 mg/dL Borderline high: 75-99 mg/dL High: >or= 100 mg/dL Ages 10 to 20 years Acceptable: <90 mg/dL Borderline high: 90-129 mg/dL High: >or= 130 mg/dL Ages > or = 20 years Desirable: <150 mg/dL Borderline high: 150-199 mg/dL High: 200-499 mg/dL Very high: >or= 499 mg/dL Literature References: 1. Expert Panel on Integrated Guidelines for Cardiovascular Health and Risk Reduction in Children and Adolescents. Pediatrics 2011;128:S213 2. NCEP Expert Panel. Circulation 2004;110:227 Current Interpretive Data was last revised on 2018. HDL 49 >=40 mg/dL [facility] Comment: Interpretive Data Ages < or = 19 years Acceptable: >45 mg/dL Borderline low: 40-45 mg/dL Low: <40 mg/dL Ages > or = 20 years Desirable: >or= 60 mg/dL Low: <40 mg/dL Literature References: 1. Expert Panel on Integrated Guidelines for Cardiovascular Health and Risk Reduction in Children and Adolescents. Pediatrics 2011;128:S213 2. NCEP Expert Panel. Circulation 2004;110:227 Current Interpretive Data was last revised on 2018. LDL, calculated 111 <=129 mg/dL [facility] Comment: Interpretive Data Ages < or = 19 years Acceptable: <110 mg/dL Borderline high: 110-129 mg/dL High: >or= 130 mg/dL Ages > or = 20 years Optimal: <100 mg/dL Near optimal: 100-129 mg/dL Borderline high: 130-159 mg/dL High: >160 mg/dL Calculated using the Glynn LDL-C estimating equation. This equation was implemented on 2024. Prior to this date LDL-C was estimated using the Friedewald equation. Literature References: 1. Expert Panel on Integrated Guidelines for Cardiovascular Health and Risk Reduction in Children and Adolescents. Pediatrics 2011;128:S213 2. NCEP Expert Panel. Circulation 2004;110:227 3. Glynn M et al. CHRISTAL Cardiol. 2020 February 10;5(5):540-548. doi: 10.1001/[email or web address] Current Interpretive Data was last revised on 2024. Non-HDL Cholesterol 130 mg/dL [facility] Comment: Interpretive Data Ages < or = 19 years Acceptable: <120 mg/dL Borderline high: 120-144 mg/dL High: >145 mg/dL Ages > or = 20 years When triglycerides are >200 mg/dL, Non-HDL cholesterol is a secondary target of therapy with treatment goals that are 30 mg/dL greater than the LDL cholesterol target. Literature References: 1. Expert Panel on Integrated Guidelines for Cardiovascular Health and Risk Reduction in Children and Adolescents. Pediatrics 2011;128:S213 2. NCEP Expert Panel. Circulation 2004;110:227 Current Interpretive Data was last revised on 2018. Chol/HDL ratio 4 [facility] Blood 07/15/2025 3:15 PM CDT 07/15/2025 6:12 PM CDT Narrative [facility] - 07/15/2025 7:09 PM CDT Has the patient been fasting for 8 hours or more?->Yes us Nela Winslow DEPUTY [employer]ER[employer]ILD[employer]ARD LAB BLOOD ORDERABLES Final Result [facility] [address] [facility] Department [place] [address] * Comprehensive metabolic panel (07/15/2025 3:15 PM CDT) Sodium 141 135 - 145 mmol/L Potassium, pl 4.3 3.3 - 4.9 mmol/L [facility] Chloride 106 97 - 110 mmol/L [facility] CO2 25 22 - 32 mmol/L [facility] Anion gap 10 2 - 15 mmol/L [facility] BUN 15 6 - 25 mg/dL [facility] Creatinine 0.84 0.60 - 1.10 mg/dL [facility] Glucose 89 70 - 199 mg/dL [facility] Comment: Interpretive Data Fasting glucose >/= 126 mg/dl is diagnostic for diabetes. Fasting is defined as no caloric intake for at least 8 hours. Fasting glucose between 100 mg/dl to 125 mg/dl is diagnostic of prediabetes. In a patient with classic symptoms of hyperglycemia or hyperglycemic crisis, a random glucose >/= 200 mg/dl is diagnostic for diabetes. In the absence of unequivocal hyperglycemia, results should be confirmed by repeat testing. The classification and Diagnosis of Diabetes Diabetes Care 2021; 46: S19-S40. Current interpretive data was last revised 2022. Calcium 9.9 8.5 - 10.3 mg/dL [facility] Bilirubin, total 0.5 0.1 - 1.2 mg/dL [facility] Protein, pl 7.5 6.5 - 8.5 g/dL [facility] Albumin 4.4 3.5 - 5.0 g/dL [facility] Alk phos 54 40 - 130 Units/L [facility] ALT 8 7 - 45 Units/L [facility] AST 24 10 - 45 Units/L [facility] Blood 07/15/2025 3:15 PM CDT 07/15/2025 6:12 PM CDT us Nela Winslow NP LAB BLOOD ORDERABLES Final Result [facility] [address] [facility] Department [place] [address] * Pap and High Risk HPV and Genotyping (Cytology Component) (07/15/2025 2:43 PM CDT) Thin prep (Pap test) 07/15/2025 2:43 PM CDT 07/19/2025 3:37 PM CDT Narrative PATHOLOGY [facility] - 07/25/2025 2:13 PM CDT EPIC results best viewed via link to PDF [facility] [place] [address] Note to Patients: This report may contain a detailed description of human tissue sent by a health care provider to the laboratory for pathologic evaluation. The content of this report is essential for diagnosis and may provide important critical findings. This information may be unfamiliar to patients to review without a medical professional present. It is advised that the patient review this report in the presence of a health care provider who can answer questions and explain the details. CYTOPATHOLOGY REPORT FINAL Patient Name: DEYSI FLOOD Gender: F : 1985 (Age: 40) Address: [address] [place] [address] Hospital #: [id number] Service: UNKNOWN Location: Patient Type: [facility] SPECIMEN Taken: 07/15/2025 Received: 07/19/2025 Accessioned: 07/19/2025 Reported: 07/25/2025 Physician(s): Nela Winslow NP FINAL INTERPRETATION SOURCE OF SPECIMEN Liquid based Thin Prep pap with HPV: STATEMENT OF ADEQUACY - Satisfactory for evaluation - Endocervical cells/transformation zone sample absent GENERAL CATEGORIZATION: - Negative for squamous intraepithelial lesion or malignancy Comments (Normal-Negative for High Risk HPV) HPV HR 16- Not detected HPV HR 18-Not detected HPV HR non 16/18- Not detected Interpretive Data Nucleic acid amplification for detection of high-risk Human Papilloma virus (HPV) is performed by the Alfredo Constantine 6800 HPV test. This assay specifically detects HPV- 16 and HPV-18 genotypes. The following HPV genotypes are detected as high-risk HPV: HPV-31, 33, 35, 39, 45, 51, 52, 56, 58, 59, 66, and 68. This assay has been approved by the [place] Food and Drug Administration for detection of HPV in cervical specimens collected by a physician using an endocervical brush/spatula or cervical broom and placed in the ThinPrep Pap Test PreservCyt collection containers. The performance characteristics of this test have been verified by the [facility] Molecular Infectious Disease laboratory. Correlate with reported cytology results, as applicable. Interpretive data last revised 23 osie/07/25/2025 14:13 JACINTA Reyes([facility]) Report Electronically Reviewed and Signed Out By JACINTA Reyes([facility]) 07/25/2025 14:13:29 Cervicovaginal Cytology (Pap Test) Disclaimer: The Pap test is a screening test used to detect cervical cancer and its precursors; it is not a diagnostic procedure. False negative and false positive results do occur. Pap test results should be interpreted in the context of pertinent clinical information and biopsy results as indicated. [facility] Clinical Laboratory Improvement Amendments (CLIA) mandate that cytologic and histologic results be correlated for laboratory vice president quality assurance & improvement standards. FOR ALL HIGH-GRADE CASES we request submission of follow-up histological material and/or reports that have not been previously provided so that we may fulfill said required standards. Gross Description A. Liquid based Thin Prep pap with HPV: Cervical/vaginal - Screening ThinPrep Clinical Diagnosis and History Last Menstrual Period: 06/30 Menstrual History: Regular Cycles Previous Atypia: Yes The patient is a 40 year old female with screening. Report Images and scanned documents, if included only viewable in PDF version The performance characteristics of some immunohistochemical stains, in-situ hybridization and fluorescence in-situ hybridization tests and immunophenotyping by flow cytometry cited in this report (if any) were determined by the Surgical Pathology Department at [facility] as part of an ongoing quality technician fiberglass program and in compliance with federally mandated regulations drawn from the Clinical Laboratory Improvement Act of 1988 (CLIA '88). Some of these tests rely on the use of analyte specific reagents and are subject to specific labeling requirements by the US Food and Drug Administration. Such diagnostic tests may only be performed in a facility that is certified by the Department of Health and Human Services as a high complexity laboratory under CLIA '88. The FDA has determined that such clearance or approval is not necessary. This test is used for clinical purposes. It should not be regarded as investigational or for research. Nevertheless, federal rules concerning the medical use of analyte specific reagents require that the following disclaimer be attached to the report: This test was developed and its performance characteristics determined by the Surgical Pathology Department of [facility]. It has not been cleared or approved by the U. S. Food and Drug Administration. Nela Winslow NP LAB CYTOLOGY ORDERABLES Fi nal Result PATHOLOGY [facility] * Screening Mammogram Bilateral W Claus (07/08/2025 11:22 AM CDT) Anatomical Region Laterality Modality Breast Bilateral Mammography Impressions 07/08/2025 12:22 PM CDT Bilateral No evidence of malignancy in either breast. OVERALL BI-RADS FINAL ASSESSMENT: 1 - Negative RECOMMENDATION: Recommend bilateral annual screening mammography. Narrative 07/08/2025 12:22 PM CDT EXAMINATION: Screening Mammogram Bilateral W Claus: 07/08/2025 COMPARISON: This is the patient's baseline mammogram. TECHNIQUE: Mammography was performed with 2D and 3D digital breast tomosynthesis (DBT) images. CAD was utilized. BREAST PARENCHYMAL COMPOSITION: There are scattered areas of fibroglandular density. FINDINGS: Bilateral There is no suspicious mass, calcification, or architectural distortion in either breast. Self Screening Mammogram IMG MAMMO PROCEDURES Fi nal Result from Last 3 Months Insurance [employer] OOS ANTHEM ACCESS ANTHEM ACCESS Care Teams Assistant Food Service Director Relationship Specialty Start Date End Date Nela Winslow NP [address] [facility] [address] [place] [address] PCP - General Internal Medicine 02/21/25
--- OUTSIDE RECORDS SUMMARY | 2025-10-02 12:44 | XMS_ITS | Encounter Summary ---
Author Organization [facility] Address [facility] [place] [address] Care Team Providers Care Maintenance Data Analyst Name Role Phone Claire Cadena NP Primary Care Provider [phone] [phone] Encounter Details Date Type Department Care Team (Late st Contact Info) Description 06/30/2023 [employer] Message Enc [facility] Family Medicine [facility] [address] [phone] Claire Cadena NP [address] [place] [address] [place] [phone] Software Build Engineer Social History Tobacco Use Types Packs/Day Years Used Date Smoking Tobacco: Former Cigarettes 0.3 4 0 12/16/2012 - 12/16/2016 Smokeless Tobacco: Never Alcohol Use Standard Drinks/Week [...] documented as of this encounter Care Teams Maintenance Data Analyst Relationship Specialty Start Date End Date Claire Cadena NP [address] [place] [address] PCP - General NURSE PRACTITIONER 12/30/22 08/16/25 documented as of this encounter
--- OUTSIDE RECORDS SUMMARY | 2025-10-02 12:44 | XMS_ITS | Encounter Summary ---
Author Organization [facility] Address [facility] [place] [address] Care Team Providers Care Manager Camp Name Role Phone Claire Cadena NP Primary Care Provider [phone] Encounter Details Date Type Department Care Team (Late st Contact Info) Description 01/10/2023 [email or web address] Message Enc [facility] Family Medicine [facility] [address] [phone] Claire Cadena, BRITNEY [address] [place] [address] [place] [phone] Appointment Follow Up Social History Tobacco Use Types Packs/Day Years Used Date Smoking Tobacco: Former Cigarettes 0.3 4 0 12/16/2012 - 12/16/2016 Smokeless Tobacco: Never Alcohol Use Standard Drinks/Week Comments Not Currently 0 (1 standard drink = 0.6 oz pur e alcohol) PHQ-2 Answer Date Recorded Patient Health Questionnaire-2 Score 0 12/31/2022 Comments No Sex and Gender Information Value [...] suspected to have Coronavirus/COVID-19? No / Unsure 01/06/2023 9:16 AM CDT documented as of this encounter Plan of Treatment Not on file documented as of this encounter Visit Diagnoses Not on filedocumented in this encounter Additional Health Concerns Assessment Noted Time PHQ-9 Depression Total Score: 5 01/01/20 2:57 PM CDT documented as of this encounter Care Teams Manager Camp Relationship Specialty Start Date End Date Claire Cadena NP [address] [place] [address] [place] [address] PCP - General NURSE PRACTITIONER 12/30/22 08/16/25 documented as of this encounter
--- OUTSIDE RECORDS SUMMARY | 2025-10-02 12:44 | XMS_ITS | Encounter Summary ---
Author Organization [facility] Address [facility] [place] [address] Care Team Providers Care Network Admin Name Role Phone Claire Cadena NP Primary Care Provider [phone] [phone] Encounter Details Date Type Department Care Team (Late st Contact Info) Description 05/18/[address] [employer] [address] [facility] Family Medicine [facility] [address] [facility] [address] [place] [id number] Claire Cadena NP [address] [address] [place] [phone] Cancel Social History Tobacco Use Types Packs/Day Years [...] Time PHQ-9 Depression Total Score: 7 06/26/20 11:03 AM CDT documented as of this encounter Care Teams Network Admin Relationship Specialty Start Date End Date Claire Cadena NP [address] [address] [place] [address] PCP - General NURSE PRACTITIONER 12/30/22 08/16/25 documented as of this encounter
--- OUTSIDE RECORDS SUMMARY | 2025-10-02 12:44 | XMS_ITS | Clinical Summary ---
Author Organization [facility] Address [address] [place] [address] Phone Care Team Providers Care Account Liaison Name Role Phone Catia Veras MD Primary Care Prov ider Allergies Active Allergy Reactions Criticality Noted Date Comments Penicillins Nausea and Vomiting Low 08/12/2014 Medications escitalopram oxalate (LEXAPRO) 10 mg tablet TAKE 1 TABLET(10 MG) BY MOUTH DAILY 90 Tablet 07/31/2021 Active Active Problems Patient Care Coordination No te Formatting of this note migh t be different from the original. Consent to speak to gina johnston (father) [phone] Problem Noted Date Diagnosed Date Overweight 11/01/2019 Primary insomnia 01/20/2017 Generalized anxiety disorder 12/23/2016 Seasonal allergic rhinitis due to pollen 017 Pain of right scapula 12/23/2016 Immunizations Immunization Administration Dates Next Due (GARDASIL)(9-45 YRS) HUMAN P APILLOMAVIRUS VACCINE, TYPES 6, 11, 16, 18, QUADRIVALENT (4VHPV), 3 DOSE, IM 08/03/2009,04/07/2009,02/09/2009 (PFIZER)(12 YR UP) COVID-19 VACCINE - EMERGENCY USE AUTHORIZATION, MRNA, [id number](PF) 30 MCG/0.3 ML IM SUSP 01/21/2021,12/31/2020 Influenza Seasonal Unspecifi ed Formulation IM 12/01/2018 Family History Medical History Relation Name Comments Healthy Brother 1 Healthy Brother 2 Coronary Artery Disease Father Hypertension Father Stroke Father Heart Disease Maternal Grandfather Depression Mother Cancer Paternal Grandfather smoking Heart Disease Paternal Grandfather Breast Cancer Neg Hx Colon Cancer Neg Hx Diabetes Neg Hx Ovarian Cancer Neg Hx Relation Name Status Comments Brother 1 Alive Brother 2 Father Alive Maternal Grandfather Mother Paternal Grandfather Social History Tobacco Use Types Packs/Day Years Used Date Smoking Tobacco: Former Cigarettes 0.3 5 Smokeless Tobacco: Never Alcohol Use Standard Drinks/Week Comments Yes 0 (1 standard drink = 0.6 oz pur e alcohol) socially Comments No Sex and Gender Information Value Date Recorded Sex Assigned at Not on file Legal Sex Female 6:07 AM MINER Gender Identity Not on file Sexual Orientation Not on file 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 Not on file Not on file Not on file Last Filed Vital Signs Vital Sign Reading Time Taken Comments Blood Pressure 110/70 02/19/2021 8:17 AM CDT Pulse 82 02/19/2021 8:17 AM CDT Temperature 36.7 C (98.1 F) 02/19/2021 8:17 AM CDT Respiratory Rate 16 02/19/2021 8:17 AM CDT Oxygen Saturation 98% 02/19/2021 8:17 AM CDT Inhaled Oxygen Concentration - - Weight 75.8 kg (167 lb) 02/19/2021 8:17 AM CDT Height 165.1 cm (5' 5) 02/19/2021 8:17 AM CDT Body Mass Index 27.79 02/19/2021 8:17 AM CDT Plan of Treatment Health Maintenance Due Date Last Done Comments DTAP/TDAP/TD VACCINES (1 - Tdap) 2004 HEPATITIS B VACCINES (1 of 3 - 19+ 3-dose series) 2004 CERVICAL CANCER SCREENING 12/06/2020 PAP SMEAR 12/06/2020 12/06/2019, 11/13, 08/30/2016, Additional history exists HPV/Cotest (21-29) 12/06/2024 12/06/2019, 0 12/01/2018, 08/30/2016, Additional history exists HPV/Cotest (30-65) 12/06/2024 12/06/2019, 0 12/01/2018, 08/30/2016, Additional history exists INFLUENZA VACCINE (#1) 2025 12/01/2018 COVID-19 Vaccine (3 2024-2 6 season) 2025 01/21/2021, 12/31/2020 BREAST CANCER SCREENING 2025 HPV VACCINES Completed 08/03/2009, 03/14, 02/09/2009 Procedures Procedure Name Priority Date/Time Associated Diagnosis Comments CERV/VAG CYTO AGE BASED SCREEN PAP Routine 12/06/2019 11:17 AM MINER Cervical smear, as part of routine gynecological examination from Last 3 Months or Most Recently Relevant to Health Maintenance Results * CERV/VAG CYTO AGE BASED SCREEN PAP (12/06/2019 11:17 AM MINER) COMMENT (PAP): SEE COMMENT 2:07 PM MINER [facility] Comment: This order for age-based cervical cancer and STI screening follows ACOG guidelines(PB 168, 140, CYO239). See individual assays for performing site location. CLINICAL INFORMATION SCREENING 12/08/2019 2:07 PM MINER [facility] LAST MENSTRUAL PERIOD 12/08/2019 2:07 PM MINER [facility] PREV PAP: [id number]/08/2019 2:07 PM MINER [facility] PREV BX: INFORMATION NOT PROVIDED 12/08/2019 2:07 PM MINER [facility] SOURCE Endocervix 12/08/2019 2:07 PM MINER [facility] ADEQUACY: SEE COMMENT 12/08/2019 2:07 PM MINER [facility] Comment: Satisfactory for evaluation. Endocervical/transformation zone component absent. PAP INTERP Negative for intraepithelial lesion or malignancy. 12/08/2019 2:07 PM MINER [facility] COMMENT This Pap test has been evaluated with computer assisted technology. 12/08/2019 2:07 PM MINER [facility] GLOBAL MARKETING INTERN: SEE COMMENT 2019 2:07 PM MINER [facility] Comment: KMY CT(ASCP) CT screening location: [place] [address] [place] [address] EXPLANATORY NOTE SEE COMMENT 02/26/2 020 2:07 PM MINER [facility] Comment: EXPLANATORY NOTE: The Pap is a screening test for cervical cancer. It is not a diagnostic test and is subject to false negative and false positive results. It is most reliable when a satisfactory sample, regularly obtained, is submitted with relevant clinical findings and history, and when the Pap result is evaluated along with historic and current clinical information. HPV E6/E7 Not Detected Not Detected 12/08/2019 2:07 PM MINER [facility] Comment: This test was performed using the APTIMA HPV Assay ([employer] This assay detects E6/E7 viral messenger RNA (mRNA) from 14 high-risk HPV types (16,18,31,33,35,39,45,51,52,56,58,59,66,68). The analytical performance characteristics of this assay have been determined by [employer]. The modifications have not been cleared or approved by the FDA. This assay has been validated pursuant to the CLIA regulations and is used for clinical purposes. Genital SWAB OF ENDOCERVIX / Unknown Collection / Unknown 12/06/2019 11:17 AM MINER 12/06/2019 1:41 PM MINER Narrative [facility] - 12/08/2019 2:07 PM MINER Performing Organization Information: Site ID: [place] Name: [facility] Address: [address] [address] Director: Alexis Robles D.O., MPH Site ID: [id number] [facility] Address: [address] [facility] [address] [address] Director: Altaf Porter January Pete SAEED PATHOLOGY/CYTOLOGY ORDERABLES Final Result [facility] [phone] from Last 3 Months or Most Recently Relevant to Health Maintenance Insurance [facility] BLUE ACCESS CHOICE BLUE [employer] CHOICE Care Teams Account Liaison Relationship Specialty Start Date End Date Catia Veras MD PCP - General Family Practice 06/25/19
--- OUTSIDE RECORDS SUMMARY | 2025-10-02 12:44 | XMS_ITS | Encounter Summary ---
Author Organization [facility] Address [facility] [place] [address] Care Team Providers Care Photoresist Contact Printer Name Role Phone Claire Cadena NP Primary Care Provider [phone] [phone] Encounter Details Date Type Department Care Team (Late st Contact Info) Description 10/02/2023 [employer] Message Enc [facility] Family Medicine [facility] [address] [phone] Claire Cadena NP [address] [place] [phone] Medication Update Social History Tobacco Use Types Packs/Day Years [...] documented as of this encounter Care Teams Photoresist Contact Printer Relationship Specialty Start Date End Date Claire Cadena NP [address] [place] [address] [place] [address] PCP - General NURSE PRACTITIONER 12/30/22 08/16/25 documented as of this encounter
[2025-10-02 12:46] VITALS: BP 142/89; PULSE 80; RESP 20; O2SAT 100
[2025-10-02 12:48] LABS: Troponin I < 0.012 ng/mL (0.000-0.034)
== END 2025-10-02 12:48 | disposition home or self-care (01) ==
PROVIDERS: Family Medicine; Emergency Provider Student in an Organized Health Care Education/Training Program; PCP Nurse Practitioner
DX: R07.9 Chest pain, unspecified (principal); R94.31 Abnormal electrocardiogram [ECG] [EKG]
CPT/HCPCS: 36415; 71046; 80053; 83690; 84484; 85025; 85610; 85730; 93005; 99284